=== PATIENT | female | born 1975 | race Asian ===

== ENCOUNTER 2016-03-18 10:01 | Outpatient (CLI) | payer OTHER | END 2016-03-18 19:07 | disposition home or self-care (01) | LOC: RAD 10:01 | DX: D86.89 Sarcoidosis of other sites (principal); M25.562 Pain in left knee; M25.561 Pain in right knee ==

== ENCOUNTER 2016-07-22 10:40 | Outpatient (CLI) | payer OTHER | END 2016-07-22 19:06 | disposition home or self-care (01) | LOC: US 10:40 | DX: R22.43 Localized swelling, mass and lump, lower limb, bilateral (principal) ==

== ENCOUNTER 2017-01-13 13:27 | Outpatient (CLI) | payer OTHER ==
[2017-01-13 14:04] LABS: PLATELET COUNT 342 K/uL (152-353)
[2017-01-13 14:36] LABS: POTASSIUM 3.7 mmol/L (3.6-5.2); SODIUM 135 mmol/L (136-145)
== END 2017-01-13 21:18 | disposition home or self-care (01) ==
LOC: LAB 13:27
PROVIDERS: Nurse Practitioner Family
DX: Z00.00 Encounter for general adult medical examination without abnormal findings (principal); E11.65 Type 2 diabetes mellitus with hyperglycemia; I10 Essential (primary) hypertension; R53.83 Other fatigue; R53.81 Other malaise; Z79.899 Other long term (current) drug therapy; Z51.81 Encounter for therapeutic drug level monitoring
CPT/HCPCS: 80053; 80061; 83036; 84436; 84443; 85027

== ENCOUNTER 2018-03-19 17:40 | Outpatient (CLI) | payer OTHER ==
[2018-03-19] MEDS ORDERED: BUDE1AER5 INH (18:05)
[2018-03-19] MEDS ORDERED: CIPRO500 MG PO (18:05)
[2018-03-19] MEDS ORDERED: [UNRECOGNIZED DRUG - OTHER] PO (18:06)
[2018-03-19] MEDS ORDERED: [UNRECOGNIZED DRUG - CODE] PO (18:07)
[2018-03-19] MEDS ORDERED: FERROUS SULF325 M1 PO (18:08)
[2018-03-19] MEDS ORDERED: PREDNISOLONE SO10 MG PO (18:08)
[2018-03-19] MEDS ORDERED: MUCINEX600 MG PO (18:09)
[2018-03-19] MEDS ORDERED: PROVERA10 MG PO (18:10)
[2018-03-19] MEDS ORDERED: FOLIC ACID5 MG PO (18:10)
[2018-03-19] MEDS ORDERED: AMLODIPINE BESYLATE PO (18:10)
[2018-03-19] MEDS ORDERED: GLIP10TA55 PO (18:11)
[2018-03-19] MEDS ORDERED: TREXALL10 MG PO (18:11)
[2018-03-19] MEDS ORDERED: PROAIR HFA108 MCG/AC INH (18:13)
[2018-03-19] MEDS ORDERED: METFORMIN ER1000 MG PO (18:13)
== END 2018-03-19 17:53 | disposition short-term general hospital (02) ==
LOC: AMB 17:40
DX: M79.602 Pain in left arm (principal)
CPT/HCPCS: A0425; A0429

== ENCOUNTER 2018-03-19 17:56 | Emergency (ER) | payer OTHER ==
[~2018-03-19] VITALS: Ht 170.2 cm; Wt 104.8 kg
[2018-03-19] MEDS ORDERED: CIPRO500 MG PO (18:05)
[2018-03-19] MEDS ORDERED: BUDE1AER5 INH (18:05)
[2018-03-19] MEDS ORDERED: [UNRECOGNIZED DRUG - OTHER] PO (18:06)
[2018-03-19] MEDS ORDERED: [UNRECOGNIZED DRUG - CODE] PO (18:07)
[2018-03-19] MEDS ORDERED: FERROUS SULF325 M1 PO (18:08)
[2018-03-19] MEDS ORDERED: PREDNISOLONE SO10 MG PO (18:08)
[2018-03-19] MEDS ORDERED: MUCINEX600 MG PO (18:09)
[2018-03-19] MEDS ORDERED: AMLODIPINE BESYLATE PO (18:10)
[2018-03-19] MEDS ORDERED: FOLIC ACID5 MG PO (18:10)
[2018-03-19] MEDS ORDERED: PROVERA10 MG PO (18:10)
[2018-03-19] MEDS ORDERED: GLIP10TA55 PO (18:11)
[2018-03-19] MEDS ORDERED: TREXALL10 MG PO (18:11)
[2018-03-19] MEDS ORDERED: METFORMIN ER1000 MG PO (18:13)
[2018-03-19] MEDS ORDERED: PROAIR HFA108 MCG/AC INH (18:13)
[2018-03-19 18:52] LABS: PLATELET COUNT 325 K/uL (152-353)
[2018-03-19 18:57] LABS: POTASSIUM 3.5 mmol/L (3.6-5.2)
[2018-03-19 21:56] VITALS: BP 131/60
== END 2018-03-19 21:55 | disposition home or self-care (01) ==
LOC: ED 17:56
PROVIDERS: Family Medicine
DX: M79.602 Pain in left arm (principal); R79.89 Other specified abnormal findings of blood chemistry
CPT/HCPCS: 80053; 85027; 85379; 85610; 85730; 96360; 96361; 96375; 99284; J1650; J2270

== ENCOUNTER 2018-03-19 22:04 | Outpatient (CLI) | payer OTHER ==
[~2018-03-19 22:04] MED LIST: AMLODIPINE BESYLATE PO; BUDE1AER5 INH; CIPRO500 MG PO; FERROUS SULF325 M1 PO; FOLIC ACID5 MG PO; GLIP10TA55 PO; METFORMIN ER1000 MG PO; MUCINEX600 MG PO; PREDNISOLONE SO10 MG PO; PROAIR HFA108 MCG/AC INH; PROVERA10 MG PO; TREXALL10 MG PO; [UNRECOGNIZED DRUG - CODE] PO; [UNRECOGNIZED DRUG - OTHER] PO
== END 2018-03-19 22:34 | disposition short-term general hospital (02) ==
LOC: AMB 22:04
DX: M79.602 Pain in left arm (principal)
CPT/HCPCS: A0425; A0429

== ENCOUNTER 2018-10-24 08:02 | Outpatient (CLI) | payer OTHER | END 2018-10-24 20:21 | disposition home or self-care (01) | LOC: CT 08:02 | DX: R51 Headache (principal) ==

== ENCOUNTER 2018-11-09 07:46 | Outpatient (CLI) | payer OTHER | END 2018-11-09 23:47 | disposition home or self-care (01) | LOC: MAMMO 07:46 | DX: Z12.31 Encounter for screening mammogram for malignant neoplasm of breast (principal) ==

== ENCOUNTER 2018-12-12 11:33 | Outpatient (CLI) | payer OTHER | END 2018-12-12 19:17 | disposition home or self-care (01) | LOC: RAD 11:33 | DX: D86.0 Sarcoidosis of lung (principal); M06.4 Inflammatory polyarthropathy; M17.0 Bilateral primary osteoarthritis of knee; R70.0 Elevated erythrocyte sedimentation rate; Z68.41 Body mass index [BMI] 40.0-44.9, adult ==

== ENCOUNTER 2019-07-13 09:59 | Outpatient (CLI) | payer OTHER | END 2019-07-13 22:23 | disposition home or self-care (01) | LOC: RAD 09:59 | DX: M25.561 Pain in right knee (principal) ==

== ENCOUNTER 2019-12-07 12:56 | Outpatient (CLI) | payer OTHER | END 2019-12-07 23:17 | disposition home or self-care (01) | LOC: RAD 12:56 | DX: D86.9 Sarcoidosis, unspecified (principal) ==

== ENCOUNTER 2022-09-28 14:38 | Observation (INO) | payer OTHER ==
[~2022-09-28] VITALS: Ht 170.2 cm; Wt 109.8 kg
[2022-09-28 14:40] VITALS: BP 171/86; TEMP 99.4
[2022-09-28 14:55] LABS: PLATELET COUNT 188 K/uL (152-353)
[2022-09-28 15:16] LABS: POTASSIUM 3.3 mmol/L (3.6-5.2)
[2022-09-28 16:15] VITALS: BP 147/95
[2022-09-28 18:20] VITALS: BP 150/84
== END 2022-09-28 22:31 | disposition left against medical advice (07) ==
LOC: ED 14:38 → EDIP 17:06
PROVIDERS: Family Medicine; ADMIT Internal Medicine Endocrinology, Diabetes & Metabolism; ATTEND Internal Medicine Endocrinology, Diabetes & Metabolism
DX: R07.89 Other chest pain (principal); E11.9 Type 2 diabetes mellitus without complications; E78.49 Other hyperlipidemia; I10 Essential (primary) hypertension; D86.89 Sarcoidosis of other sites; E66.9 Obesity, unspecified; J18.0 Bronchopneumonia, unspecified organism; E87.6 Hypokalemia
CPT/HCPCS: 36415; 80053; 84484; 85027; 85379; 93005; 96365; 99221; 99284; G0378; J0456; Q9963

== ENCOUNTER 2022-10-08 11:00 | Outpatient (CLI) | payer OTHER ==
[2022-10-08 12:21] LABS: POTASSIUM 3.2 mmol/L (3.6-5.2)
== END 2022-10-08 20:55 | disposition home or self-care (01) ==
LOC: RAD 11:00
PROVIDERS: ATTEND Nurse Practitioner Family
DX: R19.7 Diarrhea, unspecified (principal)
CPT/HCPCS: 36415; 80048